=== PATIENT | female | born 1955 | race Two or more races ===

== ENCOUNTER 2017-12-22 11:12 | Emergency (ER) | payer MEDICAID ==
[~2017-12-22] VITALS: Ht 160 cm; Wt 96.0 kg
[2017-12-22 14:22] VITALS: BP 158/58
== END 2017-12-22 14:23 | disposition home or self-care (01) ==
LOC: ER 13:34
DX: J06.9 Acute upper respiratory infection, unspecified (principal); I10 Essential (primary) hypertension; E66.9 Obesity, unspecified; Z68.37 Body mass index [BMI] 37.0-37.9, adult
CPT/HCPCS: 71045; 99283

== ENCOUNTER 2018-11-21 12:10 | Emergency (ER) | payer MEDICAID ==
[~2018-11-21] VITALS: Ht 152.4 cm; Wt 145.0 kg
[2018-11-21] MEDS ORDERED: SODIUM CHLORIDE 0.9% 1,000 ML IV ONE (16:18)
[2018-11-21 16:39] LABS: BASOPHILS % 0.2 % (0.0-2.0); CHLORIDE 106 mEq/L (98-107); EOSINOPHILS % 0.7 % (0.0-5.0); HEMATOCRIT. 39.8 % (36.0-48.0); HEMOGLOBIN. 12.9 g/dL (12.0-16.0); LYMPHOCYTES % 21.8 % (20.0-50.0); MEAN PLATELET VOLUME 8.6 fl (7.4-10.4); MONOCYTES % 6.5 % (2.0-8.0); NEUTROPHILS % 70.8 % (40.0-76.0); PLATELET 302 x1000/uL (130-400); RED BLOOD CELL COUNT 4.98 mill/uL (4.2-5.4); RED CELL DISTRIBUTION WIDTH 15.1 % (11.6-14.6)
[2018-11-21 16:41] LABS: PROTHROMBIN TIME 10.3 sec (9.6-11.0)
[2018-11-21 16:44] LABS: ETHANOL BLOOD < 10 mg/dL
[2018-11-21 17:13] LABS: CLARITY URINE CLEAR (CLEAR); COLOR URINE YELLOW (YELLOW); KETONES URINE NEGATIVE (NEGATIVE); LEUKOCYTE ESTERASE URINE NEGATIVE (NEGATIVE); NITRITE URINE NEGATIVE (NEGATIVE); OCCULT BLOOD URINE NEGATIVE (NEGATIVE); PH URINE 5.5 (4.5-8.0); PROTEIN URINE NEGATIVE (NEGATIVE); SPECIFIC GRAVITY URINE 1.014 (1.005-1.030); UROBILINOGEN URINE 0.2 E.U./dL (0.2-1.0)
[2018-11-21 17:26] LABS: *AMPHETAMINES SCREEN URINE NEGATIVE (NEGATIVE); *BARBITURATES SCREEN URINE NEGATIVE (NEGATIVE); *BENZODIAZEPINES SCREEN URINE NEGATIVE (NEGATIVE); *COCAINE SCREEN URINE NEGATIVE (NEGATIVE)
[2018-11-21 17:27] LABS: CANNABINOID URINE SCREEN NEGATIVE (NEGATIVE); METHADONE URINE SCREEN NEGATIVE (NEGATIVE); OPIATES URINE SCREEN NEGATIVE (NEGATIVE); PHENCYCLIDINE URINE SCREEN NEGATIVE (NEGATIVE)
[2018-11-21] MEDS ORDERED: KETOROLAC 30MG/ML VIAL IV ONE (17:45)
[2018-11-21 18:15] VITALS: BP 161/57
== END 2018-11-21 19:40 | disposition home or self-care (01) ==
LOC: ER 13:40
DX: K59.00 Constipation, unspecified (principal); D25.9 Leiomyoma of uterus, unspecified; I25.10 Atherosclerotic heart disease of native coronary artery without angina pectoris; R30.0 Dysuria; R39.15 Urgency of urination
CPT/HCPCS: 36415; 74176; 80053; 80305; 80320; 81003; 83690; 85025; 85610; 96374; 99284; J1885; J7030; G0480

== ENCOUNTER 2019-08-18 12:37 | Emergency (ER) | payer MEDICAID ==
[~2019-08-18] VITALS: Ht 165.1 cm; Wt 94.0 kg
[2019-08-18 12:43] VITALS: BP 168/110
== END 2019-08-18 15:43 | disposition home or self-care (01) ==
LOC: ER 12:37
DX: Z48.02 Encounter for removal of sutures (principal); I10 Essential (primary) hypertension
CPT/HCPCS: 99281

== ENCOUNTER 2019-08-21 13:05 | Emergency (ER) | payer MEDICAID ==
[~2019-08-21] VITALS: Ht 160 cm; Wt 90.0 kg
[2019-08-21 16:10] VITALS: BP 167/87
== END 2019-08-21 16:59 | disposition home or self-care (01) ==
LOC: ER 13:05
DX: Z48.02 Encounter for removal of sutures (principal)
CPT/HCPCS: 99281